=== PATIENT | female | born 1995 | race Caucasian/White ===

== ENCOUNTER 2024-07-08 11:42 | Outpatient (CLI) | payer OTHER, SELFPAY | END 2024-07-08 11:43 | disposition home or self-care (01) | PROVIDERS: PCP Registered Nurse; Visit Provider Registered Nurse | DX: R63.5 Abnormal weight gain (principal); Z13.6 Encounter for screening for cardiovascular disorders; Z13.1 Encounter for screening for diabetes mellitus; Z11.3 Encounter for screening for infections with a predominantly sexual mode of transmission; Z12.4 Encounter for screening for malignant neoplasm of cervix; Z01.84 Encounter for antibody response examination | CPT/HCPCS: 80061; 82947; 84443; 86735; 86762; 86765; 86787 ==

== ENCOUNTER 2024-07-10 13:40 | Outpatient (CLI) | payer OTHER, SELFPAY ==
[2024-07-10 18:00] LABS: Chlamydia DNA Amplified* NOT DETECTED (No Detected); GC DNA Amplified* NOT DETECTED (No Detected)
[2024-07-13 21:05] LABS: HPV Source Cervical; HPV, High Risk by TMA Not Detected
== END 2024-07-10 13:41 | disposition home or self-care (01) ==
PROVIDERS: PCP Registered Nurse; Visit Provider Midwife
DX: Z11.3 Encounter for screening for infections with a predominantly sexual mode of transmission (principal); Z12.4 Encounter for screening for malignant neoplasm of cervix; Z11.59 Encounter for screening for other viral diseases; Z13.9 Encounter for screening, unspecified
CPT/HCPCS: 86592; 86703; 86706; 86803; 87340; 87341; 87491; 87591; 87624; 87625; 88141; 88142

== ENCOUNTER 2024-09-01 09:30 | Outpatient (RCR) | payer OTHER, SELFPAY | END 2024-12-30 23:59 | disposition home or self-care (01) | PROVIDERS: PCP Registered Nurse; Visit Provider Midwife | DX: N81.10 Cystocele, unspecified (principal); Z51.89 Encounter for other specified aftercare | CPT/HCPCS: 97110; 97140; 97162; 97535 ==